=== PATIENT | female | born 1995 | race Caucasian/White ===

== ENCOUNTER 2022-07-09 15:37 | Emergency (ER) | payer BC ==
[~2022-07-09] VITALS: Ht 162.6 cm; Wt 80.6 kg
[2022-07-09 15:47] VITALS: BP 120/89
[2022-07-09 16:00] VITALS: BP 121/80
[2022-07-09] MEDS ORDERED: ZITHROMAX250 MG PO (16:00)
[2022-07-09 16:15] VITALS: BP 109/72
[2022-07-09] MEDS ORDERED: AMOX/K CLAV875 M1 PO (16:30)
== END 2022-07-09 16:48 | disposition home or self-care (01) | DRG 153 ==
LOC: ED 15:37
DX: J02.0 Streptococcal pharyngitis (principal); D69.3 Immune thrombocytopenic purpura